=== PATIENT | female | born 1990 | race Caucasian/White ===

== ENCOUNTER 2016-12-21 08:15 | Inpatient (IN) ==
[2016-12-21] MEDS ORDERED: Naloxone 0.4 MG/ML INJ IVP PRN (08:20)
[2016-12-21] MEDS ORDERED: Famotidine 20 MG/2 ML VIAL IVP PRN (08:20)
[2016-12-21] MEDS ORDERED: Ringers Solution, Lactated 1,000 ML ONE (08:23)
[2016-12-21] MEDS ORDERED: Oxytocin 20 units/ LR 1000 mL 20 UNIT/1,000 ML BAG IVC ONE ×2 (08:26→09:44)
[2016-12-21] MEDS ORDERED: Ringers Solution, Lactated 1,000 ML IVC SCH (08:30)
[2016-12-21 08:33] LABS: Basophils % 0.2 %; Eosinophils # 0.1 K/mcL (0.0-0.6); Eosinophils % 0.5 %; Hematocrit 36.5 % (35.3-44.9); Hemoglobin 12.1 g/dL (11.5-15.4); Immature Granulocytes % 1.2 % (0-4); Lymphocytes # 2.3 K/mcL (0.6-4.6); Lymphocytes % 13.2 %; Mean Corpuscular HGB Conc 33.2 g/dL (31.6-35.5); Mean Corpuscular Hemoglobin 28.5 pg (28.0-33.3); Mean Corpuscular Volume 85.9 fL (83.0-100.0); Mean Platelet Volume 10.9 fL (9.4-12.4); Monocytes # 1.4 K/mcL (0.0-1.3); Monocytes % 7.9 %; Neutrophils # 13.2 K/mcL (1.6-8.9); Platelet Count 211 K/mcL (140-400); Red Blood Count 4.25 M/mcL (3.82-4.97); Red Cell Distribution Width 19.9 % (11.5-14.5)
[2016-12-21] MEDS ORDERED: Lidocaine 1% 20 ML MDV ONE (08:48)
--- NOTE | 2016-12-21 09:44 | OB/GYN Procedure Note ---
Delivery - Delivery Date: 12/21/16 Provider: Hill Desir Intrapartum events: none Delivery induction: none Delivery monitor: none Anesthesia: none Estimated Blood Loss: 150 - Infant (s) Infant A Presentation: vertex Position: AKIRA Route of delivery: Gender: Female Viability: Viable Pounds: 7 Ounces: 9 at 1 minute: 9 at 5 mins: 9 Shoulder Dystocia: not encountered Specimens collected: cord blood Placenta: spontaneous, complete extraction Cord: 3 umbilical vessels - Repair Episiotomy: none Laceration Description: Perineal - 2nd Degree - Complications Delivery complications: none - Disposition Mom disposition: stable in LDR [place] disposition: stable in LDR - Comments Comments: 26 y/o now delivered a viable female infant @ 1038hrs, 3VC, weight 7lbs 9oz, position is AKIRA, EBL 150, 2nd degree perineal laceration repaired with 2 and 3-0 vicryl, APGARs 9/9. Mother and stable.
[2016-12-21] MEDS: Ibuprofen 600 MG TABLET PO PRN ×2 (09:48→20:29)
[2016-12-21] MEDS ORDERED: Rho Immune Globulin 1,500 UNIT SYRINGE IM ONE (14:47)
[2016-12-21] MEDS: Acyclovir 200 MG CAPSULE PO SCH ×2 (15:07→20:26)
[2016-12-22] MEDS: Ibuprofen 600 MG TABLET PO PRN (03:13)
[2016-12-22 09:12] VITALS: BP 104/72
[2016-12-22] MEDS: Acyclovir 200 MG CAPSULE PO SCH (09:26)
--- NOTE | 2016-12-22 09:42 | Discharge Summary ---
Date of Encounter: 12/22/16 Time of Encounter: 09:40 - Discharge Diagnosis (1) Normal vaginal delivery Priority: Primary Status: Acute - Discharge Medications Prescriptions: Ibuprofen [Motrin] 600 mg PO Q6HR PRN #60 tablet PRN Reason: Pain Docusate [Colace] 100 mg PO BID PRN #60 capsule PRN Reason: Constipation Home Medications: Acyclovir [Zovirax] 1 tab PO TID 12/21/16 [History] Vit Calc,Iron,Folic [ Vitamins] 1 tab PO DAILY 12/21/16 [ History] Docusate [Colace] 100 mg PO BID PRN #60 capsule 12/22/16 [Rx] Ibuprofen [Motrin] 600 mg PO Q6HR PRN #60 tablet 12/22/16 [Rx] Allergies/Adverse Reactions: Allergies No Known Allergies Allergy (Verified 12/21/16 09:34) Data Procedures and tests throughout hospitalization: Laboratory Tests 12/21/16 12/21/16 12/21/16 08:20 08:20 09:14 WBC 17.2 H RBC 4.25 Hgb 12.1 Hct 36.5 MCV 85.9 MCH 28.5 MCHC 33.2 RDW 19.9 H Plt Count 211 MPV 10.9 Immature Gran % 1.2 Seg Neutrophils % 77.0 Lymphocytes % 13.2 Monocytes % 7.9 Eosinophils % 0.5 Basophils % 0.2 Neutrophils # 13.2 H Lymphocytes # 2.3 Monocytes # 1.4 H Eosinophils # 0.1 Basophils # 0.0 Blood Type O NEGATIVE Antibody Screen POSITIVE Antibody Identification Anti-D Due to Rhogam Screen NEGATIVE Baby's Blood Type O RH POSITIVE Mother's Blood Type O RH NEGATIVE Rhogam Indicated YES Rhogam Req for Mother 1 Labs on day of discharge: Labs from last 24 hours 12/21/16 12/21/16 09:14 08:20 Blood Type O NEGATIVE Antibody Screen POSITIVE Antibody Identification Anti-D Due to Rhogam Screen NEGATIVE Baby's Blood Type O RH POSITIVE Mother's Blood Type O RH NEGATIVE Rhogam Indicated YES Rhogam Req for Mother 1 Date of admission: 12/21/16 08:15 Primary care physician: Esperanza Díaz Discharging clinician: Riana Mcintosh Anticipated date of discharge: 12/22/16 - Patient Status Disposition: Home, Self-Care Condition: Good Functional capacity at discharge: independent ambulation Overall status at discharge: patient is back to baseline - Discharge Instructions Follow Up With: Esperanza Díaz MD [Primary Care Provider] - Additional Instructions: Folow up with primary OB provider at [facility] in 4-6 weeks - Diet and Activity Diet: regular diet Hospital Course Reason for admission: active labor Delivery: Episiotomy: none Laceration: 2nd degree complications: none Discharge diagnosis: IUP at term delivered baby: female Hospital course: Delivery - Delivery Date: 12/21/16 Provider: Hill Desir Intrapartum events: none Delivery induction: none Delivery monitor: none Anesthesia: none Estimated Blood Loss: 150 - (s) A Presentation: vertex Position: AKIRA Route of delivery: Gender: Female Viability: Viable Pounds: 7 Ounces: 9 at 1 minute: 9 at 5 mins: 9 Shoulder Dystocia: not encountered Specimens collected: cord blood Placenta: spontaneous, complete extraction Cord: 3 umbilical vessels - Repair Episiotomy: none Laceration Description: Perineal - 2nd Degree - Complications Delivery complications: none - Disposition Mom disposition: stable in LDR [place] disposition: stable in LDR - Comments Comments: 26 y/o now delivered a viable female infant @ 1038hrs, 3VC, weight 7lbs 9oz, position is AKIRA, EBL 150, 2nd degree perineal laceration repaired with 2 and 3-0 vicryl, APGARs 9/9. Mother and infant stable. Post course uncomplicated discharged home PPD 2 Time Attestation: Total time spent providing and/or coordinating discharge services: Time Spent: Less than 30 minutes Exam - Constitutional Vitals: Temp Pulse Resp BP Pulse Ox 97.8 F 81 16 104/72 98 12/22/16 09:10 12/22/16 09:10 12/22/16 09:10 12/22/16 09:10 12/22/16 09:10 General appearance IM: A&O X 3, no acute distress - Respiratory Respiratory exam: Present: CTAB - Cardiovascular Cardiovascular exam IM: Present: RRR, +S1, +S2 - GI/Abdominal GI/Abdominal exam IM: soft - Rectal Rectal exam: deferred - Uterine Tone: Firm Uterus Position: 1 Finger Below Umbilicus - Extremities Exam Extremities exam IM: Present: normal inspection - Neurological Exam Neurological exam: normal gait, oriented X3 - Psychiatric Additional comments: reports good mood
--- NOTE | 2016-12-29 22:22 | OB/GYN History & Physical ---
Date of Encounter: 12/29/16 Time of Encounter: 08:20 Assessment and Plan (1) Normal vaginal delivery Status: Acute -Denies complications during -Patient does not know blood type. Denies GBS positive Plan -Continue to monitor pt-BP, toco, FHT, vitals -Get blood type. Administer rhogam if negative. CBC -Start pitocin -Continue with vaginal delivery History of Present Illness Chief complaint: Vaginal Delivery HPI: Ms. Cruz is a 26 year old female, , with poor OBGYN care present for a vaginal delivery. States that she did not have any complications in current . Denies CP, SOB, abdominal pain, edema, HTN or urinary complaints. Denies GBS positive, does not know blood type. Her last was uncomplicated. Denies bleeding disorders, smoking, drinking, drug use. Past Med Surg Social Fam HX - Past Medical History Medical history: no medical history Psychiatric history: no psych history - Past Surgical History Surgical History: no surgical history - Social History Smoking Status: Never smoker Alcohol use: none Drug use: none - Family History Mother Adopted: No Living Status: Still Living Hx Family Cardiac Disorders: Yes (htn) Obstetrical History - Pregnancies : 2 Para: 1 Livin - History/Complications History/Complications: denies Medications and Allergies Acyclovir [Zovirax] 1 tab PO TID 12/21/16 [History] Vit Calc,Iron,Folic [ Vitamins] 1 tab PO DAILY 12/21/16 [ History] Docusate [Colace] 100 mg PO BID PRN #60 capsule 12/22/16 [Rx] Ibuprofen [Motrin] 600 mg PO Q6HR PRN #60 tablet 12/22/16 [Rx] Allergies No Known Allergies Allergy (Verified 12/21/16 09:34) Review of System OB - Neurological Nerological: no confusion, no headache(s), no paresthesias, no tingling - Psychiatric Psychiatric: no auditory hallucinations, no depression Exam - Vital Signs Vital signs: Initial Vital Signs Temp Pulse Resp BP Pulse Ox 98.5 F 76 18 118/78 99 12/21/16 11:30 12/21/16 11:30 12/21/16 11:30 12/21/16 11:30 12/21/16 11:30 - Constitutional Constitutional: well developed, well nourished, no acute distress, average body habitus - HEENT HEENT: Normocephaly, Mucus Membranes Moist - Lungs Respiratory exam: CTAB - Cardiovascular Cardiovascular exam: RRR, +S1, +S2 - Abdomen Abdomen: Present: gravid, non tender. Absent: diffuse tenderness - Cervix Dilation: 10 (per nurse) Effacement: 100 (per nurse ) - Uterus Uterus exam: Present: normal size, normal contour Results Result Diagrams: 12/21/16 08:20 Abnormal lab results WBC 17.2 K/mcL (4.3-11.1) H 12/21/16 08:20 RDW 19.9 % (11.5-14.5) H 12/21/16 08:20 Neutrophils # 13.2 K/mcL (1.6-8.9) H 12/21/16 08:20 Monocytes # 1.4 K/mcL (0.0-1.3) H 12/21/16 08:20 All other labs normal. - VTE Reasons for not Prescribing Prophylaxis: Medical contraindication
== END 2016-12-22 11:00 | disposition home or self-care (01) | DRG 560 ==
LOC: 1NENULAB → OBSVTOIN 08:15 → 1NENUOBS 11:33
PROVIDERS: ADMIT Student in an Organized Health Care Education/Training Program; ATTEND Student in an Organized Health Care Education/Training Program